=== PATIENT | female | born 1960 | race Caucasian/White ===

== ENCOUNTER 2018-05-07 06:50 | Day surgery (SDC) | payer OTHER ==
[2018-05-07] MEDS ORDERED: LR 1,000 ML IV ONE (07:06)
[2018-05-07] MEDS ORDERED: LIDOCAINE 1% 2 ML INJ ID PRN (07:06)
[2018-05-07] MEDS ORDERED: MIDAZOLAM 2 MG/2 ML VIAL IVP ONE (07:34)
--- NOTE | 2018-05-07 07:36 | PDANEPAE ---
ANE History of Present Illness abnormal uterine bleeding, here for hysteroscopy and polypectomy ANE Past Medical History - Cardiovascular History Hx Hypertension: No Hx Arrhythmias: No Hx Chest Pain: No Hx Coronary Artery / Peripheral Vascular Disease: No Hx CHF / Valvular Disease: Yes Hx Palpitations: No Cardiovascular History Comment: mitral valve prolapse - assymptomatic - Pulmonary History Hx COPD: No Hx Asthma/Reactive Airway Disease: No Hx Recent Upper Respiratory Infection: No Hx Oxygen in Use at Home: No Hx Sleep Apnea: No Sleep Apnea Screening Result - Last Documented: Negative - Neurologic History Hx Cerebrovascular Accident: No Hx Seizures: No Hx Dementia: No Neurologic History Comment: transverse myelitis. migraine - Endocrine History Hx Diabetes: No - Renal History Hx Renal Disorders: No - Liver History Hx Hepatic Disorders: No - Neurological & Psychiatric Hx Neurological / Psychiatric History Comment: anxiety, depression - Cancer History Hx Cancer: Yes Cancer History Comment: melanoma removal, right hip - Congenital Disorder History Hx Congenital Disorders: No - GI History Hx Gastrointestinal Disorders: No - Other Health History Other Health History: wears glasses. uterine polyps - Chronic Pain History Chronic Pain: No - Surgical History Prior Surgeries: 3 knee surgeries - most recent 04/07 (left knee). tonsillectomy. D&C. wisdom teeth extraction ANE Review of Systems Review of Systems: - Exercise capacity METS (RN): 5 METS ANE Patient History - Allergies Allergies/Adverse Reactions: Sulfa (Sulfonamide Antibiotics) Allergy (Verified 04/23/18 16:07) Rash - Home Medications Home Medications: Bupropion HCl 04/23/18 [Last Taken Unknown] Calcium 04/23/18 [Last Taken Unknown] Estradiol 04/23/18 [Last Taken Unknown] Gabapentin 04/23/18 [Last Taken Unknown] Progesterone 04/23/18 [Last Taken Unknown] Propranolol HCl 04/23/18 [Last Taken Unknown] Sumatriptan 04/23/18 [Last Taken Unknown] Vitamin C 04/23/18 [Last Taken Unknown] Vitamin D3 04/23/18 [Last Taken Unknown] - Smoking Hx Smoking Status: Never smoked - Family Anes Hx Family Hx Anesthesia Complications: none ANE Labs/Vital Signs - Vital Signs Height: 177.8 cm Weight: 70.307 kg ANE Physical Exam - Airway Neck exam: FROM Mallampati Score: Class 1 Mouth exam: normal dental/mouth exam - Pulmonary Pulmonary: no respiratory distress - Cardiovascular Cardiovascular: regular rate and rhythym - ASA Status ASA Status: II (took propanalol this am at 0530) ANE Anesthesia Plan Anesthesia Plan: GA w LMA
[2018-05-07] MEDS ORDERED: LIDOCAINE 2% 100 MG/5 ML SYR ONE (08:07)
[2018-05-07] MEDS ORDERED: DEXAMETHASONE 4 MG/ML VIAL ONE (08:07)
[2018-05-07] MEDS ORDERED: PROPOFOL 200 MG/20 ML VIAL ONE (08:07)
[2018-05-07] MEDS ORDERED: ONDANSETRON 4 MG/2 ML VIAL ONE (08:07)
[2018-05-07] MEDS ORDERED: fentaNYL 100 MCG/2 ML INJ ONE (08:07)
--- NOTE | 2018-05-07 08:29 | PDHPUP ---
History & Physical Update H&P update statement: This history and physical update is based on an assessment of the patient which was completed after admission or registration (within 24 hours), but prior to the surgery/procedure. H&P update: H&P reviewed & patient examined, no change in patient's condition since H&P completed
[2018-05-07] MEDS ORDERED: LR 500 ML IV PRN (09:27)
[2018-05-07] MEDS ORDERED: MEPERIDINE 25 MG/0.5 ML AMP IVP PRN (09:27)
[2018-05-07] MEDS ORDERED: PROMETHAZINE HCL 25 MG/ML INJ IVP PRN (09:27)
[2018-05-07] MEDS ORDERED: fentaNYL 100 MCG/2 ML INJ IVP PRN (09:27)
[2018-05-07] MEDS ORDERED: NALOXONE HCL 0.4 MG/ML INJ IVP PRN (09:27)
[2018-05-07] MEDS ORDERED: oxyCODONE IR 5 MG TAB PO PRN (09:27)
--- NOTE | 2018-05-07 09:28 | POSTANESTH ---
Post Anesthetic Evaluation Cardiovascular Status: Normal, Stable Respiratory Status: Normal, Stable Level of Consciousness/Mental Status: Can Participate in Eval Pain Control: Adequate, Prn Tx Ordered Nausea/Vomiting Control: Adequate, Prn Tx Ordered Complications Possibly Related to Anesthesia: None Noted
--- NOTE | 2018-05-07 09:28 | POSTOPPROG ---
Post Op Note Date of Operation: 05/07/18 Surgeon: Johanne Perez Anesthesiologist: Mallory Epps Anesthesia: LMA Pre-op Diagnosis: PMB , uterine polyp Post-op Diagnosis: same Indication: PMB Procedure: H/S polypectomy Findings: posterior wall polyp Inf/Abcess present in the surg proc area at time of surgery?: No EBL: Minimal
--- NOTE | 2018-05-07 10:20 | GOP ---
DATE OF OPERATION: 05/07/2018 SURGEON: Johanne Perez MD ANESTHESIA: General with LMA. ANESTHESIOLOGIST: Estefanía Epps DO PREOPERATIVE DIAGNOSIS: 1. Postmenopausal bleeding. 2. Endometrial polyp. POSTOPERATIVE DIAGNOSIS: 1. Postmenopausal bleeding. 2. Endometrial polyp. PROCEDURE PERFORMED: Hysteroscopic polypectomy. FINDINGS: A moderate-sized posterior wall polyp. Normal tubal ostia. INDICATIONS: Patient is a 57-year-old who was referred by Dr. Claudine Chappell for postmenopausal bl eeding. She had an initial ultrasound in October of 2017, that showed just a slightly thickened endome trium and patient had received hormone replacement therapy that was and it was felt that t his was a fairly strong dose and the part that causes the bleeding, so we decided to do expectant man agement. She continued to have bleeding and a second ultrasound done in February and this showed more distinctly a 1.6 cm endometrial polyp. I recommend hysteroscopic resection for diagnosis and also th erapeutic treatment for her bleeding. DESCRIPTION OF PROCEDURE: With informed consent signed, patient was taken to the operating room, petr hai under general anesthesia without complication, placed in a low dorsal lithotomy position, prepped and draped in usual sterile fashion. Speculum placed and then tenaculum placed on the anterior lip of the cervix. The cervix dilated to 7 mm and hysteroscope placed using normal saline as a filling medium and findings as noted above. The [employer] morcellator with polyp blade was placed through the hysteroscope and re section of the polyp done without complication. It did feel somewhat possible it might be that this was a fibroid, rather than a polyp. Photos taken of the before and after. Once it was felt that the polyp was completely removed, the hysteroscope removed and net fluid deficit was about 100 cc. Alena ent awakened in the operating room, taken to recovery room in stable condition, tolerated procedure w ell. COMPLICATIONS: None. /[id number]/MODL
[2018-05-07 10:26] VITALS: BP 115/76
--- NOTE | 2018-05-07 13:45 | POSTANESTH ---
Post Anesthetic Evaluation Cardiovascular Status: Normal, Stable Respiratory Status: Normal, Stable Level of Consciousness/Mental Status: Can Participate in Eval Pain Control: Adequate, Prn Tx Ordered Nausea/Vomiting Control: Adequate, Prn Tx Ordered Complications Possibly Related to Anesthesia: None Noted (comfortable and no questions in PACU)
== END 2018-05-07 10:15 | disposition home or self-care (01) ==
LOC: FSGY 06:50
PROVIDERS: ATTEND Obstetrics & Gynecology Gynecology
PROC: 0UDB8ZX Extraction of Endometrium, Via Natural or Artificial Opening Endoscopic, Diagnostic (ICD-10-PCS; principal; 2018-05-07 08:15)
DX: N95.0 Postmenopausal bleeding (principal); N84.0 Polyp of corpus uteri; I34.1 Nonrheumatic mitral (valve) prolapse
CPT/HCPCS: 58558; C1782; J1100; J2001; J2250; J2405; J2704; J3010